=== PATIENT | male | born 1985 | race Caucasian/White ===

== ENCOUNTER 2018-12-15 18:25 | Emergency (ER) | payer OTHER ==
[~2018-12-15] VITALS: Ht 180.3 cm; Wt 63.6 kg
[2018-12-15 18:25] VITALS: Ht 180.3 cm; Wt 63.6 kg
[2018-12-15] MEDS ORDERED: EPINEPHrine 0.1 MG/ML SYG ONE ×2 (18:40→18:47)
--- NOTE | 2018-12-15 19:02 | ERD ---
ER Documentation Chief Complaint Chief Complaint cardiac arrest HPI The patient is a 32-year-old male, presenting to the ER because of witnessed cardiac arrest at home at 1753 hrs., the family started CPR and called 911. EMS arrived at the scene of route 1759 hrs. and treated the patient with epinephrine 1 mg IV x4, Narcan 4 mg IV, 1 ampule of sodium bicarb IV and arrived to the ER at 1825 hrs, Accu-Chek by EMS was 87. He remained asystole upon arrival. The history was obtained from the EMS. He has a PICC line in the right upper extremity, being treated for Staph infection with vancomycin IV and cefepime IV for 1 week, had multiple left knee surgery. Past medical/surgical history/social history/review of system: Unable to obtain due to his condition ROS All systems reviewed and are negative except as per history of present illness. Allergies Allergies: Coded Allergies: No Known Allergy (Unverified , 12/15/18) Physical Exam Physical Exam Const: Severe acute distress. Head: Atraumatic. Eyes: Normal Conjunctiva. ENT: Normal External Ears, Nose and Mouth. Neck: Full range of motion. No meningismus. Resp: Clear to auscultation anterior and lateral Cardio: asystole Abd: Soft, non distended, normal bowel sounds, non tender. Skin: No petechiae or rashes. Back: No midline or flank tenderness. Ext: Cyanosis, Lt knee with dressing Neur: Unable to perform due to his condition Psych: Unable to perform due to his condition Results 24 hrs Current Medications Medications Dose Sig/Mike Start Time Status Last (Trade) Ordered Route PRN Stop Time Admin Dose Reason Admin Epinephrine 1 mg STK-MED 12/15/18 DC ONCE .ROUTE 18:40 12/15/18 18:41 Epinephrine 1 mg STK-MED 12/15/18 DC ONCE .ROUTE 18:47 12/15/18 18:48 Procedures/MDM The patient was intubated by EMS ETT was confirmed with bilateral symmetrical breath sounds and positive end-tidal CO2. He was treated aggressively. Please see the CODE BLUE documentation form for detail formation. He was in asystole, idioventricular rhythm, V. tach when he was defibrillated, and then idioventricular then asystole The code beginning at 1825 hrs. and ended at 1853 hrs. with the family at the bedside Critical Care: Time: 35 minutes excluding all billable procedures. Treatments/Evaluations: Close monitoring and treatment of unstable vital signs, cardiorespiratory, and neurologic status, while maintaining tight balance of fluid, respiratory, and cardiac interventions. Departure Diagnosis: Primary Impression: Cardiac arrest Condition: Critical () Comments I have informed the family WALLY WELSH MD Dec 15, 2018 19:02
== END 2018-12-15 22:18 | disposition expired ==
LOC: E/R 18:25
DX: I46.9 Cardiac arrest, cause unspecified (principal)
CPT/HCPCS: 92950; J0171; Z7502; Z7610